=== PATIENT | female | born 1990 | race Caucasian/White ===

== ENCOUNTER 2021-09-20 06:56 | Emergency (ER) | payer OTHER, MEDICAID, SELFPAY ==
[2021-09-20 07:47] VITALS: BP 137/92; PULSE 104; RESP 22; TEMP 36.8; O2SAT 98; BMI 36.1
[2021-09-20 07:49] LABS: Add Manual Diff / Slide Review NO; Basophils Absolute Auto 0 /uL (0-100); Basophils Percent Auto 0.8 % (0-2); Eosinophils Absolute Auto 300 /uL (0-450); Eosinophils Percent Auto 5.6 % (2-4); Hematocrit 38.6 % (36-46); Lymphocytes Absolute Auto 1600 /uL (1100-4500); Mean Corpuscular HGB Conc 33.7 % (30-36); Mean Corpuscular Hemoglobin 32.3 PG (26-34); Mean Corpuscular Volume 95.6 fL (80-100); Monocytes Absolute Auto 300 /uL (0-900); Monocytes Percent Auto 5.1 % (3-14); Neutrophils Absolute Auto 3100 /uL (1500-7000); Neutrophils Percent Auto 57.5 % (50-75); Platelet Count 249 X10^3/uL (150-400); Red Blood Cell Count 4.04 X10^6/uL (4.0-5.2); Red Cell Distribution Width 17.6 % (11.6-14.8); White Blood Cell Count 5.3 X10^3/uL (4.5-11.0)
[2021-09-20 07:50] LABS: Appearance Urine UA CLEAR; Bilirubin Urine UA NEGATIVE (NEGATIVE); Color Urine UA YELLOW; Glucose Urine UA NEGATIVE (Negative); Ketones Urine UA TRACE (NEGATIVE); Leukocyte Esterase Urine UA NEGATIVE (NEGATIVE); Nitrite Urine UA NEGATIVE (Negative); Occult Blood Urine UA TRACE-INTACT (Negative); Protein Urine UA 1+ (Negative); Specific Gravity Urine UA 1.025 (1.000-1.035); Urobilinogen Urine UA 0.2 E.U./dL (0.2); pH Urine UA 6.5 (4.5-8.0)
[2021-09-20 07:56] LABS: Amorphous Sediment Urine 1+; Bacteria Urine Moderate (10-30); Culture Indicated Urine Cult Not Indicated; Mucus Urine 3+ (Negative); RBC Urine 0-1/HPF (0-5/HPF); Squamous Epithelial Cell Urine 10-30 /HPF (0-5/HPF); WBC Urine 0-1/HPF (0-5/HPF)
--- NOTE | 2021-09-20 07:57 | PC.NURSE ---
pt declined social work at this time.
[2021-09-20 07:59] LABS: Alanine Aminotransferase 70 IU/L (<35); Albumin 4.2 g/dL (3.5-5.0); Albumin Globulin Ratio 1.2 (1.0-2.8); Alkaline Phosphatase 121 U/L (38-126); Aspartate Aminotransferase 146 IU/L (14-36); BUN Creatinine Ratio 11.9 (6-22); Bilirubin Total 0.6 mg/dL (0.2-1.3); Blood Urea Nitrogen 8 mg/dL (7-17); Calcium 8.8 mg/dL (8.4-10.2); Carbon Dioxide 25 mmol/L (22-32); Chloride 103 mmol/L (98-107); Estimated Glomerular Filt Rate > 60.0 mL/min (>60); Globulin 3.4 g/dL (1.7-4.1); Glucose 115 mg/dL (70-100); HEMOLYSIS < 15 (0-50); Lipase 111 U/L (23-300); Potassium 3.6 mmol/L (3.4-5.1); Sodium 140 mmol/L (137-145); Total Protein 7.6 g/dL (6.3-8.2)
--- NOTE | 2021-09-20 08:04 | ED.ABDPAIN ---
HPI - Abdominal Pain General Chief Complaint: Abdominal Pain Stated Complaint: Right side abd pain, vomiting, throat swelling Time Seen by Provider: 09/20/21 07:33 Source: patient Mode of arrival: Family Vehicle History of Present Illness HPI narrative: Patient is a 31-year-old female who presents with 3 days of nausea vomiting right upper. She is status post cholecystectomy from 5 years ago. She denies any fever or chills. She has no lower abdominal pain. She has not had any diarrhea. No painful or frequent urination. No flank pain. She says the pain is quite intense but waxes and wanes. She normally takes naproxen for her chronic low back pain which she has been unable to take the last 3 days. She also has noticed some swelling in her throat and face ongoing for the last 1 month. She has been seen by her primary care provider for this, thought initially to be thyroid nodules however her thyroid has been checked as an normal last week. She still able to manage her secretions. She is able to breathe without any difficulty but does feel like her throat is swollen. Related Data Previous Rx's Medication Instructions Recorded ondansetron 4 mg disintegrating 4 mg PO Q8H PRN #10 tab 09/20/21 tablet Allergies Allergy/AdvReac Type Severity Reaction Status Date / Time acetaminophen [From Vicodin] AdvReac Severe Vomiting Verified 09/20/21 07:46 hydrocodone [From Vicodin] AdvReac Severe Vomiting Verified 09/20/21 07:46 Review of Systems Review of Systems Narrative: GENERAL: Denies chills, fatigue, malaise, fever, sweats, travel HEENT: See HPI RESPIRATORY: Denies dyspnea, cough, wheezing, hemoptysis, sputum. CARDIOVASCULAR: Denies chest pain, palpitations, orthopnea, edema GASTROINTESTINAL: See HPI : Denies dysuria, frequency, incontinence, hematuria, urinary retention, flank pain. MUSCULOSKELETAL: Denies weakness, joint pain, or bony pain SKIN: No rash, no erythema, no pruritus NEUROLOGIC: Denies weakness, dizziness, headache, numbness, change in speech, confusion PSYCHIATRIC: No concerning psychosocial issues. 12 point review of systems is negative except for those stated above and HPI Patient History Social History Smoking Status: Current every day smoker Smoking Status: Current every day smoker tobacco type: cigarettes alcohol intake frequency: 0-2 drinks per day Substance Use Type: marijuana Exam Initial Vital Signs Initial Vital Signs: Vital Signs Temperature 98.3 F 09/20/21 07:47 Pulse Rate 104 H 09/20/21 07:47 Respiratory Rate 22 09/20/21 07:47 Blood Pressure 137/92 H 09/20/21 07:47 Pulse Oximetry 98 09/20/21 07:47 GENERAL: Alert 31-year-old female obviously nauseous, dry heaving HEENT: Head atraumatic,EOMI, pupils reactive, face symmetric, moist mucous membranes NECK: No masses are appreciated no cervical lymphadenopathy difficult to tell if there is swelling due to body habitus CARDIOVASCULAR: Regular rate and rhythm without murmurs, rubs or gallops. RESPIRATORY: Breath sounds equal bilaterally, no wheezes rales or rhonchi. ABDOMEN: Soft, tender right upper quadrant no guarding no rebound : Mild right flank pain EXTREMITIES: Normal range of motion, no clubbing or edema. Neurovascularly intact NEUROLOGICAL: Alert and oriented x4.Normal gait and speech. SKIN: Warm, dry, no laceration, no petechiae, no rashes or lesions. Course Orders Ordered: ED Orders 09/20/21 07:40 Complete Blood Count AUTO DIFF Stat Comprehensive Metabolic Panel Stat Lipase Stat TSH [Thyroid Stimulating Hormone] Stat Urinalysis and Microscopic Stat 09/20/21 08:05 US abdomen limited Stat 09/20/21 08:30 ETOH [Ethanol (ETOH)] Stat 09/20/21 08:33 Test Urine Stat Discontinued Medications Sodium Chloride (Normal Saline 0.9%) 1,000 mls @ 1,000 mls/hr IV BOLUS ONE Stop: 09/20/21 09:04 Last Infusion: 09/20/21 09:46 Dose: 0 mls/hr Documented by: Admin: 09/20/21 08:30 Dose: 1,000 mls/hr Documented by: RIVERA Ketorolac Tromethamine (Ketorolac 30 Mg/Ml Vial) 30 mg IV NOW ONE Stop: 09/20/21 08:06 Last Admin: 09/20/21 08:31 Dose: 30 mg Documented by: RIVERA Ondansetron HCl (Ondansetron 4 Mg/2 Ml Inj) 4 mg IV NOW ONE Stop: 09/20/21 08:06 Last Admin: 09/20/21 08:31 Dose: 4 mg Documented by: RIVERA Vital Signs Vital signs: Vital Signs - 8 hr 09/20/21 09:47 Pulse Rate 79 Respiratory Rate 99 H Blood Pressure 138/92 H MDM - Abdominal Pain Lab Data Result diagrams: 09/20/21 07:40 09/20/21 07:40 Labs: Lab Results 09/20/21 09/20/21 09/20/21 Range/Units 07:40 07:40 07:40 WBC 5.3 (4.5-11.0) X10^3/uL RBC 4.04 (4.0-5.2) X10^6/uL Hgb 13.0 (12.0-16.0) g/dL Hct 38.6 (36-46) % MCV 95.6 (80-100) fL MCH 32.3 (26-34) PG MCHC 33.7 (30-36) % RDW 17.6 H (11.6-14.8) % Plt Count 249 (150-400) X10^3/uL Neut % (Auto) 57.5 (50-75) % Lymph % (Auto) 31.0 (25-40) % [place] % (Auto) 5.1 (3-14) % Eos % (Auto) 5.6 H (2-4) % Baso % (Auto) 0.8 (0-2) % Neut # (Auto) 3100 (3998-1260) /uL Lymph # (Auto) 1600 (7168-9316) /uL [place] # (Auto) 300 (0-900) /uL Eos # (Auto) 300 (0-450) /uL Baso # (Auto) 0 (0-100) /uL Sodium 140 (137-145) mmol/L Potassium 3.6 (3.4-5.1) mmol/L Chloride 103 (98-107) mmol/L Carbon Dioxide 25 (22-32) mmol/L BUN 8 (7-17) mg/dL Creatinine 0.67 (0.52-1.04) mg/dL Estimated GFR > 60.0 (>60) mL/min BUN/Creatinine Ratio 11.9 (6-22) Glucose 115 H (70-100) mg/dL Calcium 8.8 (8.4-10.2) mg/dL Total Bilirubin 0.6 (0.2-1.3) mg/dL AST 146 H (14-36) IU/L ALT 70 H (<35) IU/L Alkaline Phosphatase 121 (38-126) U/L Total Protein 7.6 (6.3-8.2) g/dL Albumin 4.2 (3.5-5.0) g/dL Globulin 3.4 (1.7-4.1) g/dL Albumin/Globulin Ratio 1.2 (1.0-2.8) Lipase 111 (23-300) U/L TSH (0.47-4.68) uIU/mL Urine Color Yellow Urine Appearance Clear Urine pH 6.5 (4.5-8.0) Ur Specific [place] 1.025 (1.000-1.035) Urine Protein 1+ H (Negative) Urine Glucose (UA) Negative (Negative) g/dL Urine Ketones Trace H (NEGATIVE) Urine Occult Blood Trace-intact (Negative) Urine Nitrate Negative (Negative) Urine Bilirubin Negative (NEGATIVE) Urine Urobilinogen 0.2 (0.2) E.U./dL Ur Leukocyte Esterase Negative (NEGATIVE) Urine RBC 0-1/hpf (0-5/HPF) Urine WBC 0-1/hpf (0-5/HPF) Ur Squamous Epith Cells 10-30 /hpf H (0-5/HPF) Amorphous Sediment 1+ Urine Bacteria Moderate (10-30) H (None) Urine Mucus 3+ H (Negative) Ur Culture Indicated? Cult not indicated Urine Test (Negative) Ethyl Alcohol ( - 10) mg/dL 09/20/21 09/20/21 09/20/21 Range/Units 07:40 08:30 08:33 WBC (4.5-11.0) X10^3/uL RBC (4.0-5.2) X10^6/uL Hgb (12.0-16.0) g/dL Hct (36-46) % MCV (80-100) fL MCH (26-34) PG MCHC (30-36) % RDW (11.6-14.8) % Plt Count (150-400) X10^3/uL Neut % (Auto) (50-75) % Lymph % (Auto) (25-40) % [place] % (Auto) (3-14) % Eos % (Auto) (2-4) % Baso % (Auto) (0-2) % Neut # (Auto) (2432-6906) /uL Lymph # (Auto) (9885-7095) /uL [place] # (Auto) (0-900) /uL Eos # (Auto) (0-450) /uL Baso # (Auto) (0-100) /uL Sodium (137-145) mmol/L Potassium (3.4-5.1) mmol/L Chloride (98-107) mmol/L Carbon Dioxide (22-32) mmol/L BUN (7-17) mg/dL Creatinine (0.52-1.04) mg/dL Estimated GFR (>60) mL/min BUN/Creatinine Ratio (6-22) Glucose (70-100) mg/dL Calcium (8.4-10.2) mg/dL Total Bilirubin (0.2-1.3) mg/dL AST (14-36) IU/L ALT (<35) IU/L Alkaline Phosphatase (38-126) U/L Total Protein (6.3-8.2) g/dL Albumin (3.5-5.0) g/dL Globulin (1.7-4.1) g/dL Albumin/Globulin Ratio (1.0-2.8) Lipase (23-300) U/L TSH 1.76 (0.47-4.68) uIU/mL Urine Color Urine Appearance Urine pH (4.5-8.0) Ur Specific [place] (1.000-1.035) Urine Protein (Negative) Urine Glucose (UA) (Negative) g/dL Urine Ketones (NEGATIVE) Urine Occult Blood (Negative) Urine Nitrate (Negative) Urine Bilirubin (NEGATIVE) Urine Urobilinogen (0.2) E.U./dL Ur Leukocyte Esterase (NEGATIVE) Urine RBC (0-5/HPF) Urine WBC (0-5/HPF) Ur Squamous Epith Cells (0-5/HPF) Amorphous Sediment Urine Bacteria (None) Urine Mucus (Negative) Ur Culture Indicated? Urine Test Negative (Negative) Ethyl Alcohol 54 H ( - 10) mg/dL Point of care testing: Point of Care Testing Rapid Strep A Negative Imaging Data US - abdomen: Radiologist's Impression: PROCEDURE:? US ABDOMEN LIMITED ? INDICATIONS:? RUQ PAIN ? TECHNIQUE:? Real-time scanning was performed of the abdominal and retroperitoneal organs, with image documentation.? ? COMPARISON:? None. ? FINDINGS:? ? Liver:? Liver is normal in size and homogeneous in echotexture.? Gallbladder:? Status post cholecystectomy Biliary ducts:? Intrahepatic bile ducts are non-dilated.? Extrahepatic bile duct caliber measures 6 mm.? Normal is 6-7 mm or less in diameter, or 10 mm or less post-cholecystectomy.? Pancreas:? Visualized portions of the pancreas are sonographically normal.? Miscellaneous:? Very small amount of nonspecific free fluid near the gallbladder fossa. ? IMPRESSION:? Nonspecific scant amount of free fluid near the gallbladder fossa.? Otherwise, no acute sonographic abnormalities identified in the right upper abdomen.? Status post cholecystectomy. ? ? ? Dictated by: Peterson Mane M.D. on 09/20/2021 at 7:54 ? ? MDM Narrative Medical decision making narrative: Patient has had nausea vomiting. Blood work is overall reassuring. Ultrasound shows some mild fluid she is afebrile. Now able to tolerate fluid in feeling better. Her alcohol level is elevated. I discussed with her how much she is drinking she says she does drink daily but just 1 drink at night. She does not feel like she is going through withdrawal. LISA report shows a few visits with alcohol intoxication. Not tolerating fluids feeling better. No indication for admission. Discharge Plan Departure Patient Disposition: Home Clinical Impression: Vomiting, Alcohol use Instructions: DI for Vomiting -- Adult Activity Restrictions/Additional Instructions: *You have been diagnosed with vomiting, alcohol use *What to do: Increase fluids as tolerated. Recommend Gatorade or Gatorade like substance small amounts frequently. He use anti nausea medication as needed. Please follow-up with her primary care provider in regards to swelling of your neck. *Continue to take medications as directed Zofran 4 mg every 8 hours if needed for nausea vomiting *Follow up with your primary care provider in 2-3 days or call [phone] *Return to ER if you should have persistent vomiting, fever, increasing pain or any new, worsening or concerning symptoms Prescriptions: New ondansetron 4 mg tablet,disintegrating 4 mg PO Q8H PRN (Reason: nausea and vomiting) Qty: 10 0RF Referrals: Judi Arce PA-C [Primary Care Provider] -
--- NOTE | 2021-09-20 08:05 | DI.US.S_ITS ---
PROCEDURE: US ABDOMEN LIMITED INDICATIONS: RUQ PAIN TECHNIQUE: Real-time scanning was performed of the abdominal and retroperitoneal organs, with image documentation. COMPARISON: None. FINDINGS: Liver: Liver is normal in size and homogeneous in echotexture. Gallbladder: Status post cholecystectomy Biliary ducts: Intrahepatic bile ducts are non-dilated. Extrahepatic bile duct caliber measures 6 mm. Normal is 6-7 mm or less in diameter, or 10 mm or less post-cholecystectomy. Pancreas: Visualized portions of the pancreas are sonographically normal. Miscellaneous: Very small amount of nonspecific free fluid near the gallbladder fossa. IMPRESSION: Nonspecific scant amount of free fluid near the gallbladder fossa. Otherwise, no acute sonographic abnormalities identified in the right upper abdomen. Status post cholecystectomy. Dictated by: Peterson Mane M.D. on 09/20/2021 at 7:54 Approved by: Peterson Mane M.D. on 09/20/2021 at 7:55
[2021-09-20] MEDS: SODIUM CHLORIDE 0.9% 1,000 ML 1000 ML IV (08:30)
[2021-09-20] MEDS: KETOROLAC 30 MG/ML VIAL IV (08:31)
[2021-09-20] MEDS: ONDANSETRON 4 MG/2 ML INJ IV (08:31)
[2021-09-20 08:39] LABS: Ethanol (ETOH) 54 mg/dL
[2021-09-20 08:40] LABS: Pregnancy Test Urine Negative (Negative)
[2021-09-20 09:07] LABS: Thyroid Stimulating Hormone 1.76 uIU/mL (0.47-4.68)
[2021-09-20 09:47] VITALS: BP 138/92; PULSE 79; RESP 99
== END 2021-09-20 09:45 | disposition home or self-care (01) ==
PROVIDERS: Emergency Provider Emergency Medicine; PCP Physician Assistant
DX: R11.2 Nausea with vomiting, unspecified (principal); Z72.89 Other problems related to lifestyle; F17.210 Nicotine dependence, cigarettes, uncomplicated
CPT/HCPCS: 36415; 76705; 80053; 80320; 81001; 81025; 83690; 84443; 85025; 87880; 96361; 96374; 96375; 99284; J1885; J2405